=== PATIENT | female | born 1965 | race Caucasian/White ===

== ENCOUNTER 2025-10-01 13:32 | Emergency (ER) | payer BC ==
[2025-10-01 14:35] LABS: #Basophils 0.1 thou/uL (0.0-0.2); #Eosinophils 0.2 thou/uL (0.0-0.7); #Lymphocytes 0.4 thou/uL (1.20-3.40); #Monocytes 0.9 thou/uL (0.11-0.59); #Neutrophils 7.2 thou/uL (1.40-6.50); %Basophils 0.9 % (0.0-1.0); %Eosinophils 2.3 % (0.0-10.0); %Lymphocytes 4.5 % (21.0-51.0); %Monocytes 10.6 % (0.0-10.0); %Neutrophils 81.7 % (42.0-75.0); Hematocrit 26.9 % (36.0-47.0); Hemoglobin 8.3 g/dL (12.0-16.0); Mean Corpuscular Hemoglobin 26.8 pg (27.0-31.0); Mean Corpuscular Volume 86.6 fl (78.0-98.0); Platelet Count 352 10x3/uL (130-400); Red Blood Cell (RBC) Count 3.10 mill/uL (4.20-5.40); White Blood Cell (WBC) Count 8.7 10x3/uL (4.8-10.8)
[2025-10-01] MEDS ORDERED: Pantoprazole 40 MG VIAL ONE (14:35)
[2025-10-01] MEDS ORDERED: Enoxaparin 60 MG (0.6 mL) SYRINGE ONE (14:35)
[2025-10-01 14:46] LABS: ALT (SGPT) 11 U/L (Less than 34); AST (SGOT) 52 U/L (11-34); Albumin 2.8 g/dL (3.1-4.5); Alkaline Phosphatase 267 U/L (40-110); Anion Gap 14 mmol/L (10-20); BUN (Urea Nitrogen) 13 mg/dL (9.8-20.1); Bilirubin, Total 0.5 mg/dL (0.3-1.2); Calc. Creatinine Clearance 0 mL/min (70-130); Calcium 8.6 mg/dL (7.8-10.44); Carbon Dioxide 26 mmol/L (22-29); Chloride 98 mmol/L (98-107); Globulin 3.5 g/dL (2.4-3.5); Glucose 96 mg/dL (70-105); Potassium 3.9 mmol/L (3.5-5.1); Sodium 134 mmol/L (136-145)
[2025-10-01 14:50] LABS: Troponin I Less than 0.010 ng/mL (< 0.028)
[2025-10-01] MEDS ORDERED: Apixaban 5 MG TAB PO SCH (21:00)
== END 2025-10-01 21:13 | disposition home or self-care (01) ==
LOC: MADERS 13:32
DX: I26.99 Other pulmonary embolism without acute cor pulmonale (principal); C15.9 Malignant neoplasm of esophagus, unspecified; K21.9 Gastro-esophageal reflux disease without esophagitis; Z87.891 Personal history of nicotine dependence
CPT/HCPCS: 71045; 80053; 83880; 84484; 85025; 93005; 96372; 96374; 96375; 96376; J1650; J2270; J2470